=== PATIENT | female | born 1980 | race Caucasian/White ===

== ENCOUNTER 2024-07-25 03:08 | Emergency (ER) | payer MEDICAID ==
[~2024-07-25] VITALS: Ht 165.1 cm; Wt 82.0 kg
[2024-07-25 03:10] VITALS: BP 124/91; PULSE 110; RESP 16; TEMP 98.4; O2SAT 98
== END 2024-07-25 09:47 | disposition left against medical advice (07) ==
LOC: ER 03:08
DX: R51.9 Headache, unspecified (principal); Z53.21 Procedure and treatment not carried out due to patient leaving prior to being seen by health care provider